=== PATIENT | female | born 1955 | race Asian ===

== ENCOUNTER 2021-09-23 20:10 | Emergency (ER) | payer SELFPAY ==
[~2021-09-23] VITALS: Ht 152.4 cm; Wt 70.0 kg
[2021-09-23 20:23] VITALS: BP 141/82
[2021-09-23] MEDS ORDERED: LISI-893 PO (20:30)
[2021-09-23] MEDS ORDERED: LISI-658 PO (20:33)
== END 2021-09-23 20:40 | disposition left against medical advice (07) ==
LOC: EMS 20:12
DX: M79.672 Pain in left foot (principal); Z53.21 Procedure and treatment not carried out due to patient leaving prior to being seen by health care provider